=== PATIENT | female | born 1965 | race Caucasian/White ===

== ENCOUNTER → 2020-01-28 | Outpatient (REF) | payer OTHER | LOC: M LAB REF 17:10 | PROVIDERS: ATTEND Dermatology | DX: L90.5 Scar conditions and fibrosis of skin (principal) ==

== ENCOUNTER → 2020-03-10 | Outpatient (CLI) | payer OTHER ==
--- NOTE | 2020-03-10 13:23 | DEXAMM ---
INDICATION: SCR FOR OSTEOPOROSIS. COMPARISON: None. TECHNIQUE: Bone density was measured using dual-energy x-ray absorptiometry (DEXA). FINDINGS: AP SPINE L1-L4 BMD 1.052 g/cm2 Young Adult T-Score -1.1 Age Matched Z-Score -0.6. LT FEMUR, TOTAL BMD 0.809 g/cm2 Young Adult T-Score -1.6 Age Matched Z-Score -1.0. LT NECK BMD 0.787 g/cm2 Young Adult T-Score -1.8 Age Matched Z-Score -0.9. RT FEMUR, TOTAL BMD 0.852 g/cm2 Young Adult T-Score -1.2 Age Matched Z-Score -0.7. RT NECK BMD 1.008 g/cm2 Young Adult T-Score -0.2 Age Matched Z-Score 0.7. IMPRESSION: There is low bone density of the spine. There is low bone density of the left hip. There is normal bone density of the right hip. FOLLOW-UP: Recommendation for the next bone density exam: 2 years. <Electronically signed by Israel Joseph > 03/10/20 [id number]
== END ==
LOC: M WHC 11:18
PROVIDERS: ATTEND Physician Assistant
DX: Z12.31 Encounter for screening mammogram for malignant neoplasm of breast (principal); Z13.820 Encounter for screening for osteoporosis

== ENCOUNTER → 2020-09-09 | Outpatient (REF) ==
--- NOTE | 2020-09-09 13:28 | REPPI ---
INDICATION: DISABILITY DIAGNOSIS DETERMINATION COMPARISON: None. TECHNIQUE: AP, lateral, coned-down views of the lumbar spine. FINDINGS: Three views of the lumbosacral spine demonstrate satisfactory alignment and lordosis without acute fracture / compression injury or subluxation. Endplate sclerosis with disc space narrowing at L5-S1. Remainder of the examination is relatively age-appropriate. IMPRESSION: 1. No acute fracture / compression injury or subluxation. 2. Early moderate degenerative changes at L5-S1. Otherwise age-appropriate appearance to the lumbosacral spine. <Electronically signed by Troy Huber > 09/09/20 [id number]
--- NOTE | 2020-09-09 13:29 | REPPI ---
INDICATION: DISABILITY DIAGNOSIS DETERMINATION Physical examination suggesting congenital hip dysplasia. COMPARISON: None. TECHNIQUE: Single AP view of the pelvis. FINDINGS: No evidence for acute fracture or dislocation. No obvious healed injury. Hip joints demonstrate increased sclerosis to the acetabular roof with symmetric joint space narrowing. Small periarticular calcifications involving the left hip are suggested. IMPRESSION: Relatively mild age-related arthritic changes (left greater than right). <Electronically signed by Troy Huber > 09/09/20 [id number]
== END ==
LOC: M PLAIMG 12:59
PROVIDERS: ATTEND Internal Medicine
DX: Z00.00 Encounter for general adult medical examination without abnormal findings (principal)

== ENCOUNTER 2020-12-25 11:45 | Emergency (ER) | payer OTHER ==
[~2020-12-25] VITALS: Ht 160 cm; Wt 85.0 kg
[2020-12-25 19:05] LABS: BASO % 0.6 % (0.0-1.0); EOS % 0.8 % (0.0-3.0); HEMATOCRIT 38.8 % (36.0-47.0); HEMOGLOBIN 12.6 g/dl (12.0-15.5); LYMPH # 2.3 10^3/uL (1.5-5.0); LYMPH % 42.8 % (24.0-44.0); MEAN CORPUSCULAR HEMOGLOBIN 30.2 pg (27.0-33.0); MEAN CORPUSCULAR HGB CONC 32.5 g/dl (32.0-36.5); MONO # 0.4 10^3/uL (0.0-0.8); NEUTROPHILS # 2.5 10^3/uL (1.5-8.5); NEUTROPHILS % 47.4 % (36.0-66.0); PLATELET COUNT, AUTOMATED 329 10^3/uL (150-450); RED BLOOD COUNT 4.17 10^6/uL (4.00-5.40); WHITE BLOOD COUNT 5.3 10^3/uL (4.0-10.0)
[2020-12-25 19:29] LABS: ALT/SGPT 82 U/L (12-78); BILIRUBIN,TOTAL 0.9 MG/DL (0.2-1.0); BLOOD UREA NITROGEN 9 MG/DL (7-18); C REACTIVE PROTEIN QUANTITATIV 0.32 MG/DL (0.00-0.30); CALCIUM LEVEL 9.3 MG/DL (8.5-10.1); CARBON DIOXIDE LEVEL 31 MEQ/L (21-32); CHLORIDE LEVEL 104 MEQ/L (98-107); CK-MB VALUE MASS 1.5 NG/ML (<3.6); CPK CREATINE PHOSPHOKINASE 104 U/L (26-192); CREATININE FOR GFR 0.52 MG/DL (0.55-1.30); GLOMERULAR FILTRATION RATE > 60.0 (>51); GLUCOSE, FASTING 84 MG/DL (70-100); LDH LACTATE DEHYDROGENASE 200 U/L (84-246); MB/CK RELATIVE INDEX 1.44 (< OR =4); POTASSIUM SERUM 3.7 MEQ/L (3.5-5.1); SODIUM LEVEL 141 MEQ/L (136-145); TOTAL PROTEIN 7.2 GM/DL (6.4-8.2); TROPONIN I < 0.02 NG/ML (< 0.10)
[2020-12-25 19:44] LABS: HCG, SERUM QUALITATIVE NEGATIVE (NEGATIVE)
[2020-12-25] MEDS ORDERED: ISOVUE-370 76% 100ML VIAL As Ordered ONE (20:27)
--- NOTE | 2020-12-25 20:40 | REPVR ---
PROCEDURE INFORMATION: Exam: CT Head Without Contrast Exam date and time: 12/25/2020 7:55 PM Age: 55 years old Clinical indication: Dizziness TECHNIQUE: Imaging protocol: Computed tomography of the head without contrast. Radiation optimization: All CT scans at this facility use at least one of these dose optimization techniques: automated exposure control; mA and/or kV adjustment per patient size (includes targeted exams where dose is matched to clinical indication); or iterative reconstruction. COMPARISON: No relevant prior studies available. FINDINGS: Brain: No hemorrhage or edema seen. There are physiologic basal ganglia calcifications. A midline pericallosal lipoma is noted. Cerebral ventricles: No ventriculomegaly. Paranasal sinuses: Visualized sinuses are unremarkable. No fluid levels. Mastoid air cells: Visualized mastoid air cells are well aerated. Orbital cavity: Thinning of the lenses of the globes consistent with prior lens surgery. Bones/joints: Unremarkable. No acute fracture. Soft tissues: Unremarkable. IMPRESSION: No acute intracranial abnormality seen. Electronically signed by: Iris Yeboah On 12/25/2020 20:39:57 PM
--- NOTE | 2020-12-25 20:42 | REPVR ---
PROCEDURE INFORMATION: Exam: XR Chest Exam date and time: 12/25/2020 8:06 PM Age: 55 years old Clinical indication: Other: Covid workup; Additional info: Coronavirus workup TECHNIQUE: Imaging protocol: XR of the chest. Views: 1 view. COMPARISON: No relevant prior studies available. FINDINGS: Lungs: Reticular opacities in the left lung base. Pleural spaces: Unremarkable. No pleural effusion. No pneumothorax. Heart/Mediastinum: Unremarkable. No cardiomegaly. Bones/joints: Unremarkable. IMPRESSION: Possible early infiltrate in the left lung base. Electronically signed by: Iris Yeboah On 12/25/2020 20:42:30 PM
--- NOTE | 2020-12-25 21:03 | REPVR ---
PROCEDURE INFORMATION: Exam: CTA Chest With Contrast Exam date and time: 12/25/2020 8:40 PM Age: 55 years old Clinical indication: Pain; Shortness of breath; Chest pressure; Additional info: Cp, SOB, intermittent throat discomfort, dizziness TECHNIQUE: Imaging protocol: Computed tomographic angiography of the chest with contrast. 3D rendering (Not supervised by radiologist): MIP and/or 3D reconstructed images were created by the technologist. Radiation optimization: All CT scans at this facility use at least one of these dose optimization techniques: automated exposure control; mA and/or kV adjustment per patient size (includes targeted exams where dose is matched to clinical indication); or iterative reconstruction. Contrast material: ISOVUE 370; Contrast volume: 100 ml; Contrast route: INTRAVENOUS (IV); COMPARISON: CR PORTABLE CHEST X-RAY 12/25/2020 7:55 PM FINDINGS: Pulmonary arteries: No central pulmonary arterial filling defects identified. Aorta: Unremarkable. No aortic aneurysm. No aortic dissection. Lungs: The lungs demonstrate dependent atelectasis. With specific attention to the left lung base, no evidence of pneumonia. Pleural spaces: Trace right pleural effusion. No visible pneumothorax. Heart: Unremarkable. No cardiomegaly. No pericardial effusion. Lymph nodes: Unremarkable. No pathologically enlarged lymph nodes. Diaphragm: There is elevation of the right hemidiaphragm. Liver: The liver is more hypodense than usual consistent with fatty change. Bones/joints: No acute fracture seen. There is an old fracture of the 7th left anterior rib demonstrating callus. Soft tissues: Unremarkable. IMPRESSION: 1. Images are motion degraded limiting assessment of the small pulmonary arteries. 2. No evidence central pulmonary emboli. 3. Trace right pleural effusion. Electronically signed by: Iris Yeboah On 12/25/2020 21:02:40 PM
--- NOTE | 2020-12-25 21:08 | REPVR ---
PROCEDURE INFORMATION: Exam: CT Angiography Neck With Contrast Exam date and time: 12/25/2020 8:40 PM Age: 55 years old Clinical indication: Other: Intermittent throat discomfort; Additional info: Cp, SOB, intermittent throat discomfort, dizziness TECHNIQUE: Imaging protocol: Computed tomography angiography of the neck with contrast. 3D rendering (Not supervised by radiologist): MIP and/or 3D reconstructed images were created by the technologist. Radiation optimization: All CT scans at this facility use at least one of these dose optimization techniques: automated exposure control; mA and/or kV adjustment per patient size (includes targeted exams where dose is matched to clinical indication); or iterative reconstruction. Contrast material: ISOVUE 370; Contrast volume: 100 ml; Contrast route: INTRAVENOUS (IV); COMPARISON: CT Head without contrast 12/25/2020 7:50 PM FINDINGS: Right common carotid artery: No stenosis. No dissection or occlusion. Right internal carotid artery: No stenosis of the extracranial segment. No dissection or occlusion. Right external carotid artery: No occlusion or stenosis of the origin. Left common carotid artery: No stenosis. No dissection or occlusion. Left internal carotid artery: No stenosis of the extracranial segment. No dissection or occlusion. Left external carotid artery: No occlusion or stenosis of the origin. 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 Patent. Left vertebral artery: The left vertebral artery is dominant. Patent. Orbital cavity: Thinning of the lenses of the globes consistent with prior lens surgery. Soft tissues: Normal. No significant soft tissue swelling. Bones/joints: No acute fracture. Reversal of the cervical lordosis. Mild dextroconvex scoliosis. Mild mid to lower cervical degenerative disc disease. IMPRESSION: 1. No acute vascular findings in the neck. 2. 0% right ICA stenosis. 3. 0% left ICA stenosis. 4. The vertebral arteries are patent without stenoses. REFERENCES: NASCET CRITERIA. The degree of internal carotid artery stenosis is based on NASCET criteria. Normal is no stenosis. Mild is less than 50% stenosis. Moderate is 50-69% stenosis. Severe is 70% to 99% stenosis. Total occlusion is no detectable patent lumen. Electronically signed by: Iris Yeboah On 12/25/2020 21:08:14 PM
[2020-12-25 22:14] VITALS: O2SAT 95
[2020-12-25 22:25] VITALS: BP 138/73
--- NOTE | 2020-12-26 00:32 | ECGEPIP ---
[facility] - ED Test Date: 2020-12-25 Pat Name: ALEC PERSAUD Department: Room: - Gender: Female [employer]: yifan : 1965 Requested By: Nano Miles PA-C Order Number: [id number] Reading MD: Yo Duron Measurements Intervals [place] Rate: 77 P: 39 [place]: 172 QRS: 37 QRSD: 98 T: 25 QT: 396 QTc: 448 Interpretive Statements Normal sinus rhythm NO PRIORS FOR COMPARISON Electronically Signed on 12-26-2020 0:31:53 EDT by Yo Duron
--- NOTE | 2020-12-26 16:47 | ED PDOC ---
Post-Departure Follow-Up cxr faxed to [facility] for fu Emily Stahl MD Dec 26, 2020 16:47
== END 2020-12-25 22:46 | disposition home or self-care (01) ==
LOC: M ED 11:45
DX: J06.9 Acute upper respiratory infection, unspecified (principal); B34.9 Viral infection, unspecified; J02.9 Acute pharyngitis, unspecified; R50.9 Fever, unspecified; Z20.822 Contact with and (suspected) exposure to COVID-19; J90 Pleural effusion, not elsewhere classified; R07.9 Chest pain, unspecified; I10 Essential (primary) hypertension; J45.909 Unspecified asthma, uncomplicated; E78.5 Hyperlipidemia, unspecified; K58.8 Other irritable bowel syndrome; G47.33 Obstructive sleep apnea (adult) (pediatric); G43.909 Migraine, unspecified, not intractable, without status migrainosus; F41.9 Anxiety disorder, unspecified
CPT/HCPCS: 36415; 70450; 70498; 71045; 71275; 80053; 82550; 82553; 83605; 83615; 84484; 84703; 85025; 86140; 87798; 87880; 93005; 99284; Q9967

== ENCOUNTER → 2021-05-05 | Outpatient (CLI) | payer OTHER | LOC: M WHC 08:45 | PROVIDERS: ATTEND Family Medicine | DX: Z12.31 Encounter for screening mammogram for malignant neoplasm of breast (principal) ==

== ENCOUNTER → 2021-05-20 | Outpatient (REF) | LOC: M PLAIMG 10:44 | PROVIDERS: ATTEND Internal Medicine | DX: M19.90 Unspecified osteoarthritis, unspecified site (principal) ==

== ENCOUNTER → 2021-06-09 | Outpatient (CLI) | payer OTHER ==
[~2021-06-09] MED LIST: **SFHN** LIDOCAINE 1% MDV 20ML VIAL ONE; **SFHN** SODIUM BICARBONATE 8.4% 50MEQ 50ML VIAL ONE; CIDA500T2 PO; GABA-1171 PO; LISI20TA33 PO; NOXI1TAB PO; PANT40TA29 PO
[2021-06-09 10:26] VITALS: BP 116/72
== END ==
LOC: M WHCPRO 08:12
PROVIDERS: ATTEND Family Medicine
DX: D24.1 Benign neoplasm of right breast (principal)

== ENCOUNTER → 2021-06-19 | Outpatient (CLI) | payer OTHER ==
[~2021-06-19] MED LIST changes: -**SFHN** LIDOCAINE 1% MDV 20ML VIAL ONE; -**SFHN** SODIUM BICARBONATE 8.4% 50MEQ 50ML VIAL ONE
[2021-06-19 15:10] LABS: PLATELET COUNT, AUTOMATED 366 10^3/uL (150-450)
[2021-06-19 15:22] LABS: INR 0.93; PROTHROMBIN TIME 12.9 SECONDS (12.7-14.5)
[2021-06-19 15:23] LABS: PARTIAL THROMBOPLASTIN TIME 26.9 SECONDS (25.9-37.0)
== END ==
LOC: M LAB 14:07
PROVIDERS: ATTEND Physical Medicine & Rehabilitation
DX: M50.322 Other cervical disc degeneration at C5-C6 level (principal)